=== PATIENT | female | born 1960 | race Caucasian/White ===

== ENCOUNTER 2023-04-11 10:51 | Emergency (ER) | payer SELFPAY ==
[2023-04-11 11:15] VITALS: BP 142/96
[2023-04-11 11:53] LABS: COVID-19 Antigen Negative (Negative)
--- NOTE | 2023-04-11 12:01 | ED.GENMED ---
History of Present Illness
<Negin Hoffman PA-C - Last Filed: 04/11/23 16:34>
General
Chief Complaint: Cold/Flu/URI Symptoms
Source: patient
Exam Limitations: none
Time Seen by Provider: 04/11/23 11:39
Nursing documentation reviewed up to this point in time: agreed with
Travel History
Have you had any contact with someone who has COVID-19?: No
Do you have any symptoms of coronavirus? Fever > 100 degrees, chills, cough, shortness of breath, sore throat, loss of taste or smell, muscle aches, or headache?: Yes
Symptoms:: cough
History of Present Illness
History of Present Illness:
Patient is a 62 year old female with hx HTN, hypothyroid presenting for evaluation of cough and congestion. Symptoms started about 5 days ago�initially beginning with fever, cough, congestion. Fever has resolved but cough and nasal congestion have
persisted for the past few days. Cough has been mostly nonproductive with very minimal white-colored sputum production. Patient has been noticing wheezing when lying down and some shortness of breath. Patient noticed back pain beginning yesterday
in the right lower back with some radiation down to the leg. She denies any numbness, tingling, bowel/bladder incontinence, or groin paresthesia.
She took Advil yesterday with little improvement.
Phy Exam
<Negin Hoffman PA-C - Last Filed: 04/11/23 16:34>
Physical Exam
Physical Exam:
General: In mild distress and non-toxic, vital signs reviewed- patient afebrile
HEENT: Atraumatic, normocephalic; posterior pharynx mildly erythematous without tonsillar exudates or edema, protecting airway
Neck: appears supple, normal range of motion, no meningeal signs
CV: Regular rate rhythm, heart sounds normal, no evidence of cyanosis
Resp: No evidence of respiratory distress, mild expiratory wheeze bilaterally, no accessory muscle use
Abd: Soft, nondistended non-distended
Extremities: No deformities, no evidence of cyanosis or edema
MSK: No C-spine tenderness or midline spinal tenderness, negative straight leg raise bilaterally, no palpable right lower back pain
Neuro: alert and oriented, speech normal, no focal motor deficits
Psych: Normal affect
Skin: Intact, no rashes
Course
<Negin Hoffman PA-C - Last Filed: 04/11/23 16:34>
Orders/Labs/Results
Orders:
Orders
04/11/23 11:21
COVID-19 Antigen Urgent
Source: Nasal Swab
Influenza A+B Rapid Molecular Urgent
PIPE Source: Nasal Swab
Specimen Description:
04/11/23 12:41
Ipratropium/Albuterol Sulfate [Duoneb] 3 ml INH R NOW ONE
Ketorolac [Toradol] 15 mg IM NOW STA
04/11/23 12:42
CR Chest - 2 Views Urgent
Comment:
Reason For Exam: shortness of breath, cough
Vital Signs
Initial and Last Documented VS:
Initial Vital Signs
Temp Pulse Resp BP Pulse Ox
99 F 95 16 142/96 98
04/11/23 11:15 04/11/23 11:15 04/11/23 11:15 04/11/23 11:15 04/11/23 11:15
Last Documented Vital Signs
Temp Pulse Resp BP Pulse Ox
99 F 91 16 152/98 98
04/11/23 11:15 04/11/23 15:49 04/11/23 11:15 04/11/23 15:49 04/11/23 11:15
<Tony Denis DO - Last Filed: 04/11/23 15:52>
Orders/Labs/Results
Orders:
Orders
04/11/23 11:21
COVID-19 Antigen Urgent
Source: Nasal Swab
Influenza A+B Rapid Molecular Urgent
PIPE Source: Nasal Swab
Specimen Description:
04/11/23 12:41
Ipratropium/Albuterol Sulfate [Duoneb] 3 ml INH R NOW ONE
Ketorolac [Toradol] 15 mg IM NOW STA
04/11/23 12:42
CR Chest - 2 Views Urgent
Comment:
Reason For Exam: shortness of breath, cough
Vital Signs
Initial and Last Documented VS:
Initial Vital Signs
Temp Pulse Resp BP Pulse Ox
99 F 95 16 142/96 98
04/11/23 11:15 04/11/23 11:15 04/11/23 11:15 04/11/23 11:15 04/11/23 11:15
Last Documented Vital Signs
Temp Pulse Resp BP Pulse Ox
99 F 91 16 152/98 98
04/11/23 11:15 04/11/23 15:49 04/11/23 11:15 04/11/23 15:49 04/11/23 11:15
<Negin Hoffman PA-C - Last Filed: 04/11/23 16:34>
MDM/Problems Addressed
Differential Diagnosis Includes:
covid, influenza, viral illness, bronchitis, acute sinusitis, pneumonia
MDM/Problems Addressed:
Patient 8-year-old female presenting for evaluation of cough and congestion for the past 5 days. Symptoms started 5 days ago with mild fever, congestion, cough. Fever has resolved cough congestion emesis. Cough is mainly nonproductive with very
minimal white sputum production. Patient endorsing wheezing and mild shortness of breath. Some back pain started yesterday without any red flag back symptoms. Patient is afebrile, vital signs stable upon arrival. Physical exam as documented.
Mild bilateral expiratory wheeze on lung exam. No reproducible back pain, no C-spine or midline spinal tenderness, negative straight leg raise bilaterally. Neck has normal range of motion without meningeal signs. COVID and influenza swabs
negative. Will get chest x-ray, DuoNeb, 15 Mg IM Toradol for back pain. Will reassess
Update: Patient reports some improvement in back pain after Toradol. Less wheezing after duoneb. Chest xray pending.
Chest xray shows clear lungs with no evidence of pneumonia. Suspect likely bronchitis from viral URI. Patient has remained stable and afebrile in emergency department. Stable for discharge with return precautions and primary care follow-up. Will
send rx for albuterol inhaler and five day course of steroids. Patient comfortable with this plan. All questions answered.
Chronic conditions affecting care:
Hypothyroid, HTN
Acute Exacerbation and/or Progression of Chronic Illness:
Acute bronchitis
<Negin Hoffman PA-C - Last Filed: 04/11/23 16:34>
*Radiology
Radiology exam reviewed: preliminary read by ED provider and radiology read reviewed
*Pulse Oximetry
Patient hypoxic: no
*Brim Pouncer Interpretation
Rate: Brim Pouncer- N/A
*Critical Care Note
Total Time (30-74mins, 75-104mins- exclusive of procedures): Not Applicable
ED Attending Note
<Negin Hoffman PA-C - Last Filed: 04/11/23 16:34>
-
Portions of this chart may have been created with voice recognition software.� Occasional wrong word or��sound alike� substitutions may have occurred due to the inherent limitations of voice recognition software.
<Tony Denis DO - Last Filed: 04/11/23 15:52>
ED Attending Note
Patient seen and examined by attending physician: Yes
I performed the substantive portion of visit, reviewed & personally made and approve the management plan that is documented in note by myself or JIMENA.: Yes
I performed a history and physical exam of patient and discussed management with resident, I reviewed resident's note and agree with documented findings and plan of care.: Yes
ED Attending Note:
I have reviewed and agree with history and treatment plan by Negin Hoffman. My exam revealed 62-year-old female with slight wheezing on right side. Chest x-ray no acute findings. Likely bronchitis. Treat with prednisone and albuterol. Return
precautions given.
Discharge Plan
Departure
Patient Disposition: Home (Routine Discharge)
Date of Disposition: 04/11/23
Time of Disposition: 15:25
Patient with high blood pressure during this ER visit?: Yes
Condition: Good
Covid-19: Negative COVID-19
Discharge Problem:
Acute bronchitis
Instructions: Acute Bronchitis, Adult (DC), Viral Upper Respiratory Infection, Adult (DC), BLOOD PRESSURE
Prescriptions:
New
prednisone 50 mg tablet
50 mg PO DAILY Qty: 5 0RF
albuterol sulfate [ProAir HFA] 90 mcg/actuation HFA aerosol inhaler
1 puff inhalation Q4HPRN PRN (Reason: cough) Qty: 6.7 0RF
Referrals:
NONE,* [Family Provider] -
Stand Alone Forms: Return to Work
Activity Restrictions/Additional Instructions:
-Return to the emergency department with any high fevers, chest pain, shortness of breath, coughing up blood, severe headache, severe back pain, numbness/weakness in lower extremities, bowel/bladder incontinence, worsening in current symptoms, or
any other concerns
-Your prescriptions have been sent to your pharmacy. You can use the inhaler every 4-6 hours as needed for cough
-Stay well hydrated
-Follow-up with primary care for further evaluation/treatment
Interventions
Interventions:
*Risk Screen - Suicide Last Done: 04/11/23 15:49
*General Assessment Last Done: 04/11/23 15:49
*Neglect/Abuse Screening Last Done: 04/11/23 15:49
*Nursing Disposition Last Done: 04/11/23 15:49
ED- Pulmonary Assessment Last Done: 04/11/23 13:00
Discharge Date and Time
Discharge Date/Time: 04/11/23 15:50
[2023-04-11] MEDS: TORADOL 15 MG IM (12:53)
[2023-04-11] MEDS: DUONEB 3 ML INH (12:56)
[2023-04-11 15:48] VITALS: BP 152/98
[2023-04-11 15:49] VITALS: BP 152/98
== END 2023-04-11 15:50 | disposition home or self-care (01) ==
LOC: EMR 10:51
PROVIDERS: Emergency Medicine; EMERGENCY PHYSICIAN Emergency Medicine
DX: J20.9 Acute bronchitis, unspecified (principal); I10 Essential (primary) hypertension; Z11.52 Encounter for screening for COVID-19
CPT/HCPCS: 99284; 96372; 94640; 71046; 87502; 87811